=== PATIENT | female | born 1980 | race African-American/Black ===

== ENCOUNTER 2020-03-27 17:33 | Emergency (ER) | payer OTHER ==
[~2020-03-27] VITALS: Ht 167.6 cm; Wt 69.9 kg
[~2020-03-27 17:33] MED LIST: CALCIUM; FOLATE; IRON; PRENATAL VITS.
[2020-03-27 17:44] VITALS: BP 136/73
--- NOTE | 2020-03-27 17:50 | NUR ---
PATIENT AMBULATED TO BED 7.
--- NOTE | 2020-03-27 18:08 | NUR ---
LAB AT BEDSIDE.
[2020-03-27 18:18] LABS: BASOPHILS % (AUTO) 0.3 % (0.0-2.0); EOSINOPHILS # (AUTO) 0.1 K/uL (0-0.4); EOSINOPHILS % (AUTO) 1.1 % (0.0-4.0); HEMATOCRIT 35.2 % (36-48); HEMOGLOBIN 11.2 g/dL (12.0-16.0); LYMPHOCYTES % (AUTO) 11.4 % (20.5-51.1); MEAN CORPUSCULAR HEMOGLOBIN 25 pg (27-31); MEAN CORPUSCULAR HGB CONC 32 g/dL (33-37); MEAN CORPUSCULAR VOLUME 79.7 fL (80-94); MONOCYTES # (AUTO) 0.5 K/uL (0.8-1.0); MONOCYTES % (AUTO) 5.8 % (1.7-9.3); NEUTROPHILS # (AUTO) 7.5 K/uL (1.8-7.7); NEUTROPHILS % (AUTO) 81.4 % (42.2-75.2); PLATELET COUNT (AUTO) 236 K/uL (140-450); RED BLOOD CELL COUNT(AUTO) 4.42 MIL/uL (4.20-5.40); RED CELL DISTRIBUTION WIDTH 17.8 % (11.6-13.7); WHITE BLOOD COUNT (AUTO) 9.2 K/uL (4.8-10.8)
[2020-03-27] MEDS ORDERED: ACETAMINOPHEN 325 MG TAB PO ONE (18:20)
[2020-03-27] MEDS ORDERED: NACL 0.9% 1,000 ML IV ONE (18:20)
[2020-03-27 18:29] LABS: APPEARANCE,URINE HAZY (CLEAR); COLOR,URINE STRAW (YELLOW)
[2020-03-27 18:30] LABS: BILIRUBIN,URINE NEGATIVE (NEGATIVE); BLOOD, URINE NEGATIVE (NEGATIVE); LEUKOCYTE ESTERASE ,URINE TRACE (NEGATIVE); NITRITE, URINE NEGATIVE (NEGATIVE); PH,URINE 6.5 (5.0-9.0); UGLUCOSE NEGATIVE (NEGATIVE)
[2020-03-27 18:32] LABS: RBC,URINE NONE SEEN /HPF (0-5); WBC,URINE 0-5 /HPF (0-5)
[2020-03-27 18:34] LABS: ANION GAP 16.7 (8-16); CARBON DIOXIDE 22.5 mmol/L (21-32); CREATININE 0.6 mg/dL (0.6-1.3); POTASSIUM 4.2 mmol/L (3.5-5.1)
--- NOTE | 2020-03-27 19:29 | NUR ---
REPORT GIVEN TO LENA JAMES, TRANSFER OF CARE AT THIS TIME
[2020-03-27 20:08] VITALS: BP 112/58
--- NOTE | 2020-03-27 20:10 | NUR ---
ACI given to pt with verbal understanding, Iv D/C'd eith cath intact and bleeding controlled. Pt ambulated off unit with steady gait and all belongings.
== END 2020-03-27 20:10 | disposition home or self-care (01) ==
LOC: MED 17:33
DX: O26.892 Other specified pregnancy related conditions, second trimester (principal); R82.71 Bacteriuria; R55 Syncope and collapse; Z3A.23 23 weeks gestation of pregnancy; Z98.890 Other specified postprocedural states; Z79.899 Other long term (current) drug therapy
CPT/HCPCS: 36415; 80048; 81001; 85025; 93005; 96360; 99284; J7030; 99283

== ENCOUNTER 2020-07-04 19:46 | Observation (INO) | payer OTHER, SELFPAY ==
[~2020-07-04] VITALS: Ht 167.6 cm; Wt 78.5 kg
[2020-07-04 20:51] VITALS: BP 114/58
== END 2020-07-04 21:10 | disposition home or self-care (01) ==
LOC: MFCC 19:46
PROVIDERS: ADMIT Obstetrics & Gynecology; ATTEND Obstetrics & Gynecology
DX: O26.893 Other specified pregnancy related conditions, third trimester (principal); R10.30 Lower abdominal pain, unspecified; O99.891 Other specified diseases and conditions complicating pregnancy; M54.9 Dorsalgia, unspecified; Z3A.38 38 weeks gestation of pregnancy
CPT/HCPCS: 81000; G0378

== ENCOUNTER 2020-09-10 18:20 | Emergency (ER) | payer OTHER, SELFPAY ==
[~2020-09-10] VITALS: Ht 167.6 cm; Wt 65.8 kg
[~2020-09-10 18:20] MED LIST changes: +ACET-5629 PO; -CALCIUM; +FERR325E14 PO; -FOLATE; +IBUP-2213 PO; -IRON
[2020-09-10 19:20] VITALS: BP 138/90
--- NOTE | 2020-09-10 19:20 | NUR ---
TO TENT AMBULATORY
--- NOTE | 2020-09-10 20:20 | NUR ---
SEEN AND EXAMINED BY EVY WITH ORDERS AND CARRIED OUT
--- NOTE | 2020-09-10 20:40 | NUR ---
SWAB DONE SENT TO LAB
[2020-09-10 21:21] LABS: BASOPHILS % (AUTO) 0.4 % (0.0-2.0); EOSINOPHILS % (AUTO) 0.9 % (0.0-4.0); HEMATOCRIT 40.4 % (36-48); LYMPHOCYTES # (AUTO) 2.1 K/uL (2.5-16.5); LYMPHOCYTES % (AUTO) 41.3 % (20.5-51.1); MEAN CORPUSCULAR HEMOGLOBIN 26 pg (27-31); MEAN CORPUSCULAR HGB CONC 32 g/dL (33-37); MEAN CORPUSCULAR VOLUME 79.3 fL (80-94); MONOCYTES # (AUTO) 0.3 K/uL (0.8-1.0); MONOCYTES % (AUTO) 5.5 % (1.7-9.3); NEUTROPHILS # (AUTO) 2.6 K/uL (1.8-7.7); NEUTROPHILS % (AUTO) 51.9 % (42.2-75.2); PLATELET COUNT (AUTO) 297 K/uL (140-450); RED BLOOD CELL COUNT(AUTO) 5.09 MIL/uL (4.20-5.40)
[2020-09-10 21:35] LABS: ALBUMIN 4.3 g/dL (3.4-5.0); ANION GAP 13.2 (8-16); CREATININE 0.7 mg/dL (0.6-1.3); POTASSIUM 4.2 mmol/L (3.5-5.1); TOTAL BILIRUBIN 0.4 mg/dL (0.0-1.0)
--- NOTE | 2020-09-10 22:30 | NUR ---
ALL RESULTS BACK AND NOTED BY ERMD AND FOR D/C
[2020-09-10 22:40] VITALS: BP 121/81
== END 2020-09-10 22:40 | disposition home or self-care (01) ==
LOC: MED 18:20
DX: R07.89 Other chest pain (principal); Z79.899 Other long term (current) drug therapy; Z20.828 Contact with and (suspected) exposure to other viral communicable diseases
CPT/HCPCS: 36415; 71045; 80053; 85025; 93005; 99285; U0003

== ENCOUNTER 2021-05-18 19:52 | Emergency (ER) | payer OTHER, SELFPAY ==
[~2021-05-18] VITALS: Ht 167.6 cm; Wt 73.2 kg
[2021-05-18 19:58] VITALS: BP 150/99
--- NOTE | 2021-05-18 20:01 | NUR ---
TO LOBBY A/W BED AMBULATORY
--- NOTE | 2021-05-18 22:01 | NUR ---
Favian laird in [facility] - 05/18/21 at 2224 by MEDDM AMBULATED TO ER BED 3
--- NOTE | 2021-05-18 22:38 | NUR ---
PT AMBULATED TO BED 2 Addendum: 05/18/21 at 2244 by MED PT AMBULATED TO BED 3
--- NOTE | 2021-05-18 23:25 | NUR ---
PT SEEN AND ASSESED BY ER . NO NURSING INTERVENTIONS NEEDED.
[2021-05-18 23:29] VITALS: BP 150/99
--- NOTE | 2021-05-18 23:29 | NUR ---
Patient discharged with v/s stable. Written and verbal after care instructions given and explained. Patient verbalized understanding. Ambulatory with steady gait. All questions addressed prior to discharge. Advised to follow up with PMD.
== END 2021-05-18 23:29 | disposition home or self-care (01) ==
LOC: MED 19:52
DX: O26.891 Other specified pregnancy related conditions, first trimester (principal); R09.81 Nasal congestion; Z3A.12 12 weeks gestation of pregnancy; Z79.899 Other long term (current) drug therapy
CPT/HCPCS: 99282

== ENCOUNTER 2021-09-22 16:18 | Emergency (ER) | payer OTHER ==
[~2021-09-22] VITALS: Ht 167.6 cm; Wt 77.6 kg
[2021-09-22 17:21] VITALS: BP 126/83
[2021-09-22] MEDS ORDERED: ACET-10509 PO (18:56)
--- NOTE | 2021-09-22 19:14 | NUR ---
HEART TONES COMPLETED BY MED STUDENT.
[2021-09-22 19:15] VITALS: BP 126/83
--- NOTE | 2021-09-22 19:15 | NUR ---
Patient discharged with v/s stable. Written and verbal after care instructions given FOR RADICULAR PAIN, THIRD TRIMESTER and explained. Patient alert, oriented and verbalized understanding of instructions. Ambulatory with steady gait. All questions addressed prior to discharge. ID band removed. Patient advised to follow up with PMD. Rx of TYNENOL EXTRA STRENGTH given. Patient educated on indication of medication including possible reaction and side effects. Opportunity to ask questions provided and answered.
== END 2021-09-22 19:14 | disposition home or self-care (01) ==
LOC: MED 16:18
DX: O26.893 Other specified pregnancy related conditions, third trimester (principal); M54.10 Radiculopathy, site unspecified; O99.513 Diseases of the respiratory system complicating pregnancy, third trimester; Z3A.31 31 weeks gestation of pregnancy
CPT/HCPCS: 93005; 99283

== ENCOUNTER 2021-12-01 16:49 | Emergency (ER) | payer OTHER, SELFPAY ==
[~2021-12-01] VITALS: Ht 167.6 cm; Wt 72.6 kg
[~2021-12-01 16:49] MED LIST changes: -ACET-5629 PO; -FERR325E14 PO; -IBUP-2213 PO; -PRENATAL VITS.; +PRETAB PO
[2021-12-01 16:55] VITALS: BP 151/88
[2021-12-01 17:58] LABS: BASOPHILS % (AUTO) 0.4 % (0.0-2.0); EOSINOPHILS # (AUTO) 0.3 K/uL (0-0.4); EOSINOPHILS % (AUTO) 5.3 % (0.0-4.0); HEMATOCRIT 35.8 % (36-48); HEMOGLOBIN 11.4 g/dL (12.0-16.0); LYMPHOCYTES # (AUTO) 1.5 K/uL (2.5-16.5); LYMPHOCYTES % (AUTO) 23.2 % (20.5-51.1); MEAN CORPUSCULAR HEMOGLOBIN 25 pg (27-31); MEAN CORPUSCULAR HGB CONC 32 g/dL (33-37); MEAN CORPUSCULAR VOLUME 78.9 fL (80-94); MONOCYTES # (AUTO) 0.4 K/uL (0.8-1.0); MONOCYTES % (AUTO) 6.5 % (1.7-9.3); NEUTROPHILS # (AUTO) 4.2 K/uL (1.8-7.7); NEUTROPHILS % (AUTO) 64.6 % (42.2-75.2); PLATELET COUNT (AUTO) 383 K/uL (140-450); RED BLOOD CELL COUNT(AUTO) 4.53 MIL/uL (4.20-5.40); RED CELL DISTRIBUTION WIDTH 16.5 % (11.6-13.7); WHITE BLOOD COUNT (AUTO) 6.4 K/uL (4.8-10.8)
[2021-12-01 18:17] LABS: ALBUMIN 3.3 g/dL (3.4-5.0); ANION GAP 11.5 (8-16); CARBON DIOXIDE 27.6 mmol/L (21-32); CREATININE 0.6 mg/dL (0.6-1.3); POTASSIUM 4.1 mmol/L (3.5-5.1); TOTAL BILIRUBIN 0.2 mg/dL (0.0-1.0)
[2021-12-01] MEDS ORDERED: IBUPROFEN 800 MG TAB PO ONE (19:50)
[2021-12-01 20:35] VITALS: BP 130/71
== END 2021-12-01 20:35 | disposition home or self-care (01) ==
LOC: MED 16:49
DX: O72.1 Other immediate postpartum hemorrhage (principal); R42 Dizziness and giddiness; Z79.899 Other long term (current) drug therapy; Z98.890 Other specified postprocedural states
CPT/HCPCS: 36415; 76830; 80053; 85025; 93005; 99285; Q0092

== ENCOUNTER 2024-02-29 07:34 | Emergency (ER) | payer SELFPAY ==
[~2024-02-29] VITALS: Ht 167.6 cm; Wt 72.6 kg
[2024-02-29 07:38] VITALS: BP 138/81; PULSE 80; RESP 16; TEMP 97; O2SAT 100
[2024-02-29 09:15] LABS: BASOPHILS % (AUTO) 0.6 % (0.0-2.0); EOSINOPHILS # (AUTO) 0.1 K/uL (0-0.4); EOSINOPHILS % (AUTO) 1.8 % (0.0-4.0); HEMATOCRIT 33.4 % (36-48); HEMOGLOBIN 10.4 g/dL (12.0-16.0); LYMPHOCYTES # (AUTO) 1.9 K/uL (2.5-16.5); LYMPHOCYTES % (AUTO) 33.3 % (20.5-51.1); MEAN CORPUSCULAR HEMOGLOBIN 21 pg (27-31); MEAN CORPUSCULAR HGB CONC 31 g/dL (33-37); MEAN CORPUSCULAR VOLUME 67.7 fL (80-94); MONOCYTES # (AUTO) 0.4 K/uL (0.8-1.0); MONOCYTES % (AUTO) 7.8 % (1.7-9.3); NEUTROPHILS # (AUTO) 3.2 K/uL (1.8-7.7); NEUTROPHILS % (AUTO) 56.5 % (42.2-75.2); PLATELET COUNT (AUTO) 363 K/uL (140-450); RED BLOOD CELL COUNT(AUTO) 4.93 MIL/uL (4.20-5.40); RED CELL DISTRIBUTION WIDTH 19.2 % (11.6-13.7); WHITE BLOOD COUNT (AUTO) 5.7 K/uL (4.8-10.8)
[2024-02-29 09:36] LABS: ANION GAP 12.7 (8-16); CALCIUM 8.8 mg/dL (8.5-10.1); CARBON DIOXIDE 26.4 mmol/L (21-32); CREATININE 0.7 mg/dL (0.6-1.3); POTASSIUM 4.1 mmol/L (3.5-5.1)
[2024-02-29 09:42] LABS: ALBUMIN 4.1 g/dL (3.4-5.0); BILIRUBIN,DIRECT 0.1 mg/dL (0.0-0.3); TOTAL BILIRUBIN 0.2 mg/dL (0.0-1.0); TOTAL PROTEIN, SERUM 8.2 g/dL (6.4-8.2)
[2024-02-29 10:29] LABS: APPEARANCE,URINE CLEAR (CLEAR); BILIRUBIN,URINE NEGATIVE (NEGATIVE); BLOOD, URINE NEGATIVE (NEGATIVE); COLOR,URINE YELLOW (YELLOW); LEUKOCYTE ESTERASE ,URINE TRACE (NEGATIVE); NITRITE, URINE NEGATIVE (NEGATIVE); PH,URINE 5.5 (5.0-9.0); PROTEIN,URINE NEGATIVE (NEGATIVE); UGLUCOSE NEGATIVE (NEGATIVE); UROBILINOGEN,URINE 0.2 EU/dL (0.2 - 1)
[2024-02-29 10:44] VITALS: BP 138/81; PULSE 80; RESP 16; TEMP 97; O2SAT 100
[2024-02-29 11:36] LABS: BACTERIA,URINE None Seen /HPF (None Seen); RBC,URINE 0-5 /HPF (0-5)
[2024-02-29 11:37] LABS: SQUAMOUS EPITHELIAL CELL,UR 4-10 (MOD) /LPF (0-3 (FEW))
== END 2024-02-29 10:42 | disposition home or self-care (01) ==
LOC: MED 07:34
DX: D25.9 Leiomyoma of uterus, unspecified (principal); Z79.899 Other long term (current) drug therapy; Z98.890 Other specified postprocedural states
CPT/HCPCS: 36415; 76856; 80048; 80076; 81001; 83690; 85025; 87086; 93976; 99284; Q0092

== ENCOUNTER 2024-06-21 15:43 | Emergency (ER) | payer OTHER ==
[~2024-06-21] VITALS: Ht 170.2 cm; Wt 71.7 kg
[2024-06-21 16:16] VITALS: BP 121/65; PULSE 80; RESP 16; TEMP 98; O2SAT 99
[2024-06-21] MEDS: KETOROLAC 30 MG/ML VIAL IM ONE (17:41)
[2024-06-21] MEDS ORDERED: IBUP-2213 PO (17:47)
== END 2024-06-21 18:02 | disposition home or self-care (01) ==
LOC: MED 15:43
DX: M79.622 Pain in left upper arm (principal); Z79.899 Other long term (current) drug therapy; Z88.8 Allergy status to other drugs, medicaments and biological substances
CPT/HCPCS: 93005; 96372; 99283; J1885

== ENCOUNTER 2024-06-23 00:55 | Emergency (ER) | payer OTHER ==
[~2024-06-23] VITALS: Ht 167.6 cm; Wt 73.0 kg
[~2024-06-23 00:55] MED LIST changes: +IBUP-2213 PO
[2024-06-23 01:18] VITALS: BP 122/79; PULSE 70; RESP 16; TEMP 98.3; O2SAT 100
[2024-06-23] MEDS ORDERED: ACETAMINOPHEN 325 MG TAB ONE ×2 (03:36→03:59)
[2024-06-23 03:44] LABS: BASOPHILS % (AUTO) 0.5 % (0.0-2.0); EOSINOPHILS # (AUTO) 0.1 K/uL (0-0.4); EOSINOPHILS % (AUTO) 1.6 % (0.0-4.0); HEMATOCRIT 32.7 % (36-48); HEMOGLOBIN 10.1 g/dL (12.0-16.0); LYMPHOCYTES # (AUTO) 2.4 K/uL (2.5-16.5); MEAN CORPUSCULAR HEMOGLOBIN 21 pg (27-31); MEAN CORPUSCULAR HGB CONC 31 g/dL (33-37); MEAN CORPUSCULAR VOLUME 68.6 fL (80-94); MONOCYTES # (AUTO) 0.4 K/uL (0.8-1.0); MONOCYTES % (AUTO) 6.1 % (1.7-9.3); NEUTROPHILS # (AUTO) 4.2 K/uL (1.8-7.7); NEUTROPHILS % (AUTO) 58.8 % (42.2-75.2); PLATELET COUNT (AUTO) 313 K/uL (140-450); RED BLOOD CELL COUNT(AUTO) 4.76 MIL/uL (4.20-5.40); RED CELL DISTRIBUTION WIDTH 19.7 % (11.6-13.7); WHITE BLOOD COUNT (AUTO) 7.2 K/uL (4.8-10.8)
[2024-06-23 03:52] LABS: ANION GAP 7.3 (8-16); CALCIUM 8.4 mg/dL (8.5-10.1); CARBON DIOXIDE 28.7 mmol/L (21-32); CREATININE 0.7 mg/dL (0.6-1.3)
[2024-06-23] MEDS: KETOROLAC 30 MG/ML VIAL IM ONE (03:52)
[2024-06-23] MEDS: ACETAMINOPHEN EXTRA STRENGTH 500 MG TAB PO ONE (03:53)
[2024-06-23 04:40] VITALS: BP 119/80; PULSE 76; RESP 17; TEMP 98.3; O2SAT 100
== END 2024-06-23 04:40 | disposition home or self-care (01) ==
LOC: MED 00:55
DX: G62.9 Polyneuropathy, unspecified (principal); M79.602 Pain in left arm; Z79.899 Other long term (current) drug therapy; Z88.6 Allergy status to analgesic agent
CPT/HCPCS: 36415; 71045; 80048; 81025; 84484; 85025; 93005; 96372; 99285; J1885; Q0092